=== PATIENT | male | born 1995 | race Caucasian/White ===

== ENCOUNTER 2017-05-24 17:42 | Emergency (ER) | payer MEDICAID ==
[2017-05-24 17:52] VITALS: BP 128/72; PULSE 46; RESP 18; TEMP 98.1; O2SAT 99
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
[2017-05-24] MEDS ORDERED: TDAP ADULT 0.5 ML INJ (BOOSTRIX) IM ONE (18:35)
== END 2017-05-24 18:51 | disposition home or self-care (01) ==
LOC: CED 17:42
PROC: 0HQLXZZ Repair Left Lower Leg Skin, External Approach (ICD-10-PCS; principal; 2017-05-24)
DX: S81.812A Laceration without foreign body, left lower leg, initial encounter (principal); Z23 Encounter for immunization; W45.8XXA Other foreign body or object entering through skin, initial encounter; Y92.89 Other specified places as the place of occurrence of the external cause